=== PATIENT | female | born 1980 | race Caucasian/White ===

== ENCOUNTER → 2017-07-06 | Outpatient (CLI) | payer MEDICARE, OTHER ==
[~2017-07-06] MED LIST: ALBIPROI INH; ALBU3IS INH; ALBU90I INH; ALBU90OI INH; ALPR.5 PO; AMOCLA875 PO; ARIP15 PO; ARIP30 PO; AZIT250 PO; AZIT500 PO; Alprazolam ER2 MG; Amoxicillin500 MG PO; BENZ2 PO; BIRTHCONTROL PILL; BOTOX COSMETIC100 U INJ; BUSP10 PO; BUSP15 PO; BUSP5 PO; CEPH500 PO; CHANTIX; CHLO50 PO; CHOL10002; CHOL10002 PO; CLIN300 PO; CLON.3 PO; CLON.5 PO; CLON1; CLON2; CLON2 PO; CONEST1.25 PO; CRANBERRY; CYCL10 PO; Catapres0.1 MG PO; Cefpodoxime Pr100 MG PO; Citrate Of Mag300 ML PO; Cranberry500 M1 PO; DIAZ10 PO; DIAZ5 PO; DICL25ER PO; DIVA500EC; DOXY100 PO; DULO30; DULO30 PO; DULO60 PO; EPIN.3I IM; ERGO400 PO; ESCI10; ESCI5; ESOM20 PO; ESTR2 PO; Excedrin Extra1 EACH; FISH1000; FLUC150A PO; FLUC200 PO; HYDPAM25 PO; HYDPAM50; HYDR1TAB94 PO; IBUHYD PO; IBUP400 PO; IBUP600 PO; IBUP800 PO; IBUPROFEN 800 MG PO; Imitrex6 MG/0.52 SQ; KETO10 PO; LATUDA20 MG PO; LATUDA40 MG PO; LEVFLO250 PO; LEVSOD100 PO; LEVSOD150; LEVSOD150 PO; LEVSOD175; LEVSOD200 PO; LORA1 PO; MECL25 PO; MEDICAL MARIJUANA; MELO7.5 PO; META800 PO; METCAR500 PO; METF500 PO; METF500C PO; METO25 PO; METO50ER PO; METPRE4DP PO; MIGRANOL; MONT10T PO; MULVITA; MULVITMINE PO; NIAC500 PO; NIAC500ER PO; NITR100CA PO; Norco 5-325 Ta1 EACH PO; OLAN10; ONDA4ODT MM; OXYACE5T PO; OXYC5 PO; PENVK500 PO; PHENA100 PO; PHENA200 PO; PRAZ1; PRED20 PO; PROC10 PO; PROM25 PO; PROP120ER PO; PSEU30 PO; Percocet 5-3251 EACH PO; Prednisone20 MG PO; RANI150 PO; RXCYCL10 PO; RXTRAM50 PO; Robaxin500 MG PO; SELE1SH; SUMA25 PO; SUMA6I SC; TOPI25 PO; TRAM50 PO; VISTARIL; Valium10 MG PO; Valium5 MG PO; Vistaril25 MG PO; ZIPR20; ZIPR40 PO; ZIPR60; ZIPR80; ZIPR80 PO; Zofran Odt4 MG SL; Zofran Odt8 MG SL; [UNRECOGNIZED DRUG - OTHER]
[2017-07-06 22:03] LABS: Candida species (DNA Probe) Negative (NEGATIVE); G. vaginalis (DNA Probe) Negative (NEGATIVE); T. vaginalis (DNA Probe) Negative (NEGATIVE)
== END | disposition home or self-care (01) ==
LOC: LAB 11:19 → LAB SHORT 11:19
PROVIDERS: Advanced Practice Midwife
DX: N76.0 Acute vaginitis (principal)
CPT/HCPCS: 87480; 87510; 87660

== ENCOUNTER → 2017-11-13 | Outpatient (CLI) | payer MEDICARE, OTHER ==
[2017-11-13 14:48] LABS: G. vaginalis (DNA Probe) Negative (NEGATIVE); T. vaginalis (DNA Probe) Negative (NEGATIVE)
[2017-11-13 14:49] LABS: Candida species (DNA Probe) Negative (NEGATIVE)
== END | disposition home or self-care (01) ==
LOC: LAB 10:31 → LAB SHORT 10:31
PROVIDERS: Advanced Practice Midwife
DX: N76.0 Acute vaginitis (principal)
CPT/HCPCS: 87480; 87510; 87660

== ENCOUNTER → 2021-04-24 | Outpatient (CLI) | payer MEDICARE, OTHER ==
[2021-04-25 11:29] LABS: Candida species (DNA Probe) Negative (NEGATIVE); G. vaginalis (DNA Probe) Negative (NEGATIVE); T. vaginalis (DNA Probe) Negative (NEGATIVE)
== END | disposition home or self-care (01) ==
LOC: LAB SHORT 11:00
PROVIDERS: Obstetrics & Gynecology
DX: N76.0 Acute vaginitis (principal)
CPT/HCPCS: 87480; 87510; 87660

== ENCOUNTER → 2022-07-30 | Outpatient (CLI) | payer MEDICARE, OTHER ==
[2022-07-31 08:10] LABS: HBSAG SCREEN Negative (Negative); HCV ANTIBODY Non Reactive (Non Reactive); HIV AB/P24 AG SCREEN Non Reactive (Non Reactive)
[2022-07-31 09:46] LABS: Candida species (DNA Probe) Negative (NEGATIVE); G. vaginalis (DNA Probe) Negative (NEGATIVE); T. vaginalis (DNA Probe) Negative (NEGATIVE)
[2022-08-01 02:11] LABS: CHLAMYDIA TRACHOMATIS, NAA Negative (Negative)
== END | disposition home or self-care (01) ==
LOC: LAB SHORT 12:11 → LAB 12:11
PROVIDERS: Advanced Practice Midwife
DX: Z11.3 Encounter for screening for infections with a predominantly sexual mode of transmission (principal); N76.0 Acute vaginitis
CPT/HCPCS: 36415; 86592; 86803; 87340; 87389; 87480; 87491; 87510; 87591; 87660

== ENCOUNTER → 2023-04-10 | Outpatient (CLI) | payer MEDICARE, OTHER ==
[2023-04-13 15:35] LABS: HIV 1,2 COMBO ANTIGEN/ANTIBODY Negative (Negative)
[2023-04-13 16:58] LABS: HEPATITIS C AB CIA INTERP Negative (Negative); HEPATITIS C ANTIBODY CIA INDEX 0.17 IV
== END ==
LOC: LAB SHORT 16:35 → LAB 16:35
PROVIDERS: Student in an Organized Health Care Education/Training Program
DX: Z04.41 Encounter for examination and observation following alleged adult rape (principal); Z20.2 Contact with and (suspected) exposure to infections with a predominantly sexual mode of transmission
CPT/HCPCS: 86592; 86803; 87389